=== PATIENT | female | born 1990 | race Caucasian/White ===

== ENCOUNTER → 2017-12-22 | Outpatient (CLI) | payer OTHER ==
[~2017-12-22] MED LIST: ALBU90OI INH; ALPR.5 PO; ALPR1 PO; AZIT250; AZIT250 PO; AZIT500 PO; CETI10 PO; CHOL10002 PO; CIPR500 PO; CLIN300 PO; CYCL10 PO; Cleocin HCl300 MG PO; DIAZ5 PO; DIPH50 PO; DIVA500ER; FAMO20 PO; HYDACE10B PO; HYDACE5 PO; HYOS.125 SL; K-Dur20 MEQ PO; Keflex500 MG PO; LACT10SY PO; LAMO100 PO; MICROZIDE12.5 MG; NAPR500 PO; NAPR550 PO; NITR100 PO; NORETHTP; NORT25 PO; NUVA RING; OLAN10 PO; OMEP10ER PO; OMEP20ER PO; OXYACE5T PO; PARO20; PHENA100; PHENA200 PO; POTCHL20ER PO; PRED20 PO; PROACE100 PO; PROM25 PO; PSEU120ER PO; RXANTBENOT AU; RXCYCL10 PO; RXHYDACE PO; RXNAPNA550 PO; RXOXYACE PO; RXPHEN200 PO; RXPROACE PO; RXTRAM50 PO; SULTRIDS PO; TRAACE PO; TRAM50 PO; VILAZODONE 40 MG; ZOLP10 PO
== END ==
LOC: LAB 11:17 → LAB SHORT 11:17
PROVIDERS: Registered Nurse Community Health
DX: Z12.4 Encounter for screening for malignant neoplasm of cervix (principal)
CPT/HCPCS: G0123

== ENCOUNTER 2018-02-14 22:45 | Observation (INO) | payer OTHER ==
[~2018-02-14] VITALS: Ht 157.5 cm; Wt 65.8 kg
[2018-02-14 23:16] LABS: BASOPHILS ABSOLUTE AUTO 0.03 K/mm3 (0.00-0.23); BASOPHILS PERCENT AUTO 1 % (0-2); EOSINOPHILS ABSOLUTE AUTO 0.04 K/mm3 (0.00-0.68); EOSINOPHILS PERCENT AUTO 1 % (0-6); Hematocrit 36.8 % (33.0-51.0); Hemoglobin 12.1 g/dL (11.5-16.0); IMMATURE GRAN ABSOLUTE AUTO 0.01 K/mm3 (0.00-0.10); IMMATURE GRAN PERCENT AUTO 0 % (0-1); LYMPHOCYTES PERCENT AUTO 37 % (21-46); MONOCYTES PERCENT AUTO 6 % (4-13); Mean Corpuscular HGB 26.4 pg (26.0-34.0); Mean Corpuscular HGB Conc 32.9 g/dL (31.5-36.5); Mean Corpuscular Volume 80 fL (80-100); Mean Platelet Volume 11.9 fL (9.1-12.4); NEUTROPHILS ABSOLUTE AUTO 2.58 K/mm3 (1.96-9.15); NEUTROPHILS PERCENT AUTO 55 % (41-73); Platelet Count 182 K/mm3 (150-400); RDW Coefficient Variation 12.5 % (11.7-14.2); Red Blood Cell Count 4.58 M/mm3 (3.80-5.20); White Blood Cell Count 4.66 K/mm3 (4.00-11.30)
[2018-02-14 23:22] LABS: Source, Urine Clean Catch
[2018-02-14 23:25] LABS: Bilirubin, Urine Neg (Neg); Blood, Urine Neg (Neg); Glucose Qualitative, Urine Neg (Neg); Ketones, Urine 1+ (Neg); Leukocyte Esterase, Urine Neg (Neg); Nitrite, Urine Neg (Neg); Protein, Urine 1+ (Neg); Urobilinogen, Urine 1+ (Normal)
[2018-02-14 23:32] LABS: Appearance, Urine Hazy (Clear); Color, Urine Yellow (P-Yellow)
[2018-02-14 23:33] LABS: Amorphous Light (0-Heavy); Bacteria Few /hpf; Mucus Mod (0-Heavy); Red Blood Cells, Urine Not Seen /hpf (0-2); Squamous Epithelial Cells Mod /hpf (Few); White Blood Cells, Urine Not Seen /hpf (0-5)
[2018-02-14 23:39] LABS: Alanine Aminotransfer (ALT/SGP 19 U/L (12-78); Albumin, Blood 3.4 g/dL (3.4-5.0); Albumin/Globulin Ratio 1.1 (0.8-1.8); Alk Phos 54 U/L (50-136); Anion Gap 9 mmol/L (6-16); Aspartate Aminotrans (AST/SGOT 17 U/L (12-37); Bilirubin, Total 0.5 mg/dL (0.1-1.0); Blood Urea Nitrogen 13 mg/dL (8-24); Bun/Creatinine Ratio 16.4 (12.0-20.0); CO2, Blood 24 mmol/L (21-32); Chloride, Blood 107 mmol/L (98-108); Ethanol (Alcohol), Blood, Med <3 mg/dL; Globulin, Blood 3.2 g/dL (2.2-4.0); Glomerular Filtration Rate >60 (60-); Glucose, Blood 87 mg/dL (70-99); Salicylate 2.7 mg/dL (2.8-20.0); Sodium, Blood 140 mmol/L (136-145); Total Protein, Blood 6.6 g/dL (6.4-8.2)
[2018-02-14 23:40] LABS: U Amphetamine Screen DETECTED; U Barbituate Screen Not Detected; U Benzodiazapine Screen DETECTED; U Buprenorphine Screen Not Detected; U Cannabinoids Screen DETECTED; U Cocaine Screen Not Detected; U Methadone Screen Not Detected; U Methamphetamine Screen DETECTED; U Opiates Screen Not Detected; U Oxycodone Screen Not Detected; U Phencyclidine Screen Not Detected; U Propoxyphene Screen Not Detected
[2018-02-14 23:45] LABS: Acetaminophen, Random <2.0 ug/mL (10.0-30.0)
== END 2018-02-15 16:07 | disposition home or self-care (01) ==
LOC: ER 22:45 → EOR 22:46
PROVIDERS: Emergency Medicine
DX: T43.202A Poisoning by unspecified antidepressants, intentional self-harm, initial encounter (principal); F43.21 Adjustment disorder with depressed mood; F15.10 Other stimulant abuse, uncomplicated; F41.9 Anxiety disorder, unspecified; F17.210 Nicotine dependence, cigarettes, uncomplicated; F23 Brief psychotic disorder; F43.10 Post-traumatic stress disorder, unspecified; Z88.0 Allergy status to penicillin; Z88.2 Allergy status to sulfonamides; Z88.8 Allergy status to other drugs, medicaments and biological substances; Z79.899 Other long term (current) drug therapy
CPT/HCPCS: 36415; 80053; 81001; 81025; 84443; 85025; 96372; 99285; G0378; G0480; J1200; J1630; J2060; Q3014

== ENCOUNTER → 2019-05-10 | Outpatient (CLI) | payer OTHER ==
[2019-05-12 14:07] LABS: HPV 16 Negative (Negative); HPV 18 Negative (Negative); HPV OTHER HR TYPES Negative (Negative)
== END ==
LOC: LAB 17:30 → LAB SHORT 17:30
PROVIDERS: Registered Nurse Community Health
DX: Z01.419 Encounter for gynecological examination (general) (routine) without abnormal findings (principal)
CPT/HCPCS: 87624; G0123

== ENCOUNTER 2019-08-12 08:35 | Inpatient (IN) | payer OTHER ==
[~2019-08-12] VITALS: Ht 167.6 cm; Wt 73.1 kg
[~2019-08-12 08:35] MED LIST changes: -ALPR.5 PO; -CHOL10002 PO; -NUVA RING; -OMEP10ER PO; -ZOLP10 PO
[2019-08-12 09:00] LABS: PCO2 Arterial 41.4 mmHg (35-45); PO2 Arterial 91.7 mmHg (80-100)
[2019-08-12 09:16] LABS: U Amphetamine Screen DETECTED; U Barbituate Screen Not Detected; U Benzodiazapine Screen DETECTED; U Cannabinoids Screen DETECTED; U Cocaine Screen Not Detected; U Methadone Screen Not Detected; U Methamphetamine Screen DETECTED; U Opiates Screen Not Detected
[2019-08-12 09:17] LABS: U Buprenorphine Screen Not Detected; U Oxycodone Screen Not Detected; U Phencyclidine Screen DETECTED; U Propoxyphene Screen Not Detected
[2019-08-12 09:19] LABS: BASOPHILS ABSOLUTE AUTO 0.03 K/mm3 (0.00-0.23); BASOPHILS PERCENT AUTO 1 % (0-2); EOSINOPHILS ABSOLUTE AUTO 0.02 K/mm3 (0.00-0.68); EOSINOPHILS PERCENT AUTO 0 % (0-6); Hematocrit 43.6 % (33.0-51.0); Hemoglobin 13.9 g/dL (11.5-16.0); IMMATURE GRAN ABSOLUTE AUTO 0.02 K/mm3 (0.00-0.10); IMMATURE GRAN PERCENT AUTO 0 % (0-1); LYMPHOCYTES ABSOLUTE AUTO 1.16 K/mm3 (0.84-5.20); LYMPHOCYTES PERCENT AUTO 25 % (21-46); MONOCYTES ABSOLUTE AUTO 0.26 K/mm3 (0.16-1.47); MONOCYTES PERCENT AUTO 6 % (4-13); Mean Corpuscular HGB 25.6 pg (26.0-34.0); Mean Corpuscular HGB Conc 31.9 g/dL (31.5-36.5); Mean Corpuscular Volume 80 fL (80-100); Mean Platelet Volume 11.9 fL (9.1-12.4); NEUTROPHILS ABSOLUTE AUTO 3.21 K/mm3 (1.96-9.15); NEUTROPHILS PERCENT AUTO 68 % (41-73); Platelet Count 133 K/mm3 (150-400); RDW Coefficient Variation 12.8 % (11.7-14.2); RDW Standard Deviation 36.8 fL (35.1-46.3); Red Blood Cell Count 5.44 M/mm3 (3.80-5.20)
[2019-08-12 09:46] LABS: Alanine Aminotransfer (ALT/SGP 19 U/L (12-78); Albumin, Blood 3.3 g/dL (3.4-5.0); Albumin/Globulin Ratio 0.9 (0.8-1.8); Alk Phos 62 U/L (50-136); Anion Gap 5 mmol/L (6-16); Aspartate Aminotrans (AST/SGOT 18 U/L (12-37); Bilirubin, Total 0.4 mg/dL (0.1-1.0); Blood Urea Nitrogen 9 mg/dL (8-24); Bun/Creatinine Ratio 11.3 (12.0-20.0); CO2, Blood 25 mmol/L (21-32); Calcium, Blood 8.4 mg/dL (8.5-10.1); Chloride, Blood 110 mmol/L (98-108); Ethanol (Alcohol), Blood, Med <3 mg/dL; Free Thyroxine 1.12 ng/dL (0.70-1.60); Globulin, Blood 3.7 g/dL (2.2-4.0); Glomerular Filtration Rate >60 (60-); Glucose, Blood 90 mg/dL (70-99); Potassium, Blood 3.4 mmol/L (3.5-5.5); Salicylate <1.7 mg/dL (2.8-20.0); Sodium, Blood 140 mmol/L (136-145)
[2019-08-12 09:48] LABS: Acetaminophen, Random <2.0 ug/mL (10.0-30.0)
[2019-08-12] MEDS ORDERED: VENL150ER PO (11:56)
[2019-08-12] MEDS ORDERED: FERATE240 MG PO (11:57)
[2019-08-12] MEDS ORDERED: Nuvaring Vagin1 EACH VAG (11:58)
[2019-08-12] MEDS ORDERED: ALPR.5 PO (11:59)
[2019-08-12] MEDS ORDERED: OMEPRAZOLE20 MG PO (11:59)
[2019-08-12] MEDS ORDERED: ZOLP5 PO (12:03)
[2019-08-12] MEDS ORDERED: VITAMIN D350 MCG PO (12:03)
[2019-08-12] MEDS ORDERED: CYCL10 PO (12:04)
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
[2019-08-12 15:33] LABS: Acetaminophen, Random <2.0 ug/mL (10.0-30.0); Salicylate <1.7 mg/dL (2.8-20.0)
[2019-08-12 15:36] LABS: Alanine Aminotransfer (ALT/SGP 18 U/L (12-78); Albumin/Globulin Ratio 0.9 (0.8-1.8); Alk Phos 59 U/L (50-136); Anion Gap 3 mmol/L (6-16); Aspartate Aminotrans (AST/SGOT 16 U/L (12-37); Bilirubin, Total 0.4 mg/dL (0.1-1.0); Blood Urea Nitrogen 7 mg/dL (8-24); Bun/Creatinine Ratio 9.6 (12.0-20.0); CO2, Blood 25 mmol/L (21-32); Calcium, Blood 8.2 mg/dL (8.5-10.1); Chloride, Blood 112 mmol/L (98-108); Creatinine, Blood 0.73 mg/dL (0.40-1.00); Globulin, Blood 3.4 g/dL (2.2-4.0); Glomerular Filtration Rate >60 (60-); Glucose, Blood 72 mg/dL (70-99); Sodium, Blood 140 mmol/L (136-145); Total Protein, Blood 6.4 g/dL (6.4-8.2)
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
[2019-08-12 18:03] LABS: Source, Urine Catheter
[2019-08-12 18:09] LABS: Bilirubin, Urine Neg (Neg); Blood, Urine 5+ (Neg); Glucose Qualitative, Urine Neg (Neg); Ketones, Urine 2+ (Neg); Leukocyte Esterase, Urine 3+ (Neg); Nitrite, Urine Neg (Neg); Protein, Urine Neg (Neg); Specific Gravity, Urine 1.005 (1.003-1.022); Urobilinogen, Urine NORM (Normal); pH, Urine 6.5 (5.0-8.0)
--- NOTE | 2019-08-12 18:10 | NUR ---
PT BECAME INCREASINGLY AGGITATED, UNABLE TO REDIRECT. CONTINUES TO MAKE CONFUSED STATEMENTS AND HAVE VISUAL HALLUCINATIONS. PT ATTEMPTING TO PULL RUELAS CATH. YELLING AT STAFF WHEN ATTEMPTS MAKE TO REDIRECT. PLACED PT IN SOFT RESTRAINTS TO ALL EXTREMITIES AND VEST AT 1740. WILL ATTEMPT TO PROVIDE UNINTERRUPTED REST FOR EVENING, LIMITING VISITORS AT THIS TIME. 1:1 SITTER REMAINS AT BEDSIDE. REPORT TO ONCOMING NURSE.
[2019-08-12 18:18] LABS: Appearance, Urine Hazy (Clear); Color, Urine Yellow (P-Yellow)
[2019-08-12 18:28] LABS: Bacteria Many /hpf; Squamous Epithelial Cells Mod /hpf (Few)
[2019-08-12 20:00] LABS: Alanine Aminotransfer (ALT/SGP 16 U/L (12-78); Albumin, Blood 2.9 g/dL (3.4-5.0); Alk Phos 53 U/L (50-136); Anion Gap 5 mmol/L (6-16); Aspartate Aminotrans (AST/SGOT 14 U/L (12-37); Bilirubin, Total 0.4 mg/dL (0.1-1.0); Blood Urea Nitrogen 7 mg/dL (8-24); Bun/Creatinine Ratio 9.8 (12.0-20.0); CO2, Blood 25 mmol/L (21-32); Calcium, Blood 8.1 mg/dL (8.5-10.1); Chloride, Blood 112 mmol/L (98-108); Creatinine, Blood 0.71 mg/dL (0.40-1.00); Glomerular Filtration Rate >60 (60-); Glucose, Blood 74 mg/dL (70-99); Potassium, Blood 4.1 mmol/L (3.5-5.5); Sodium, Blood 142 mmol/L (136-145); Total Protein, Blood 5.9 g/dL (6.4-8.2)
--- NOTE | 2019-08-12 20:00 | NUR ---
PT AROUSES FROM SLEEP TO PAINFUL STIMULI. WILL MUMBLE FEW NONSENSICAL WORDS THEN FALLS BACK TO SLEEP QUICKLY. PT IS IN 4 POINT RESTRAINTS AND VALE VEST SHE WAS DIFFICULT TO REDIRECT AND COMBATIVE DURING DAY SHIFT. SEE ASSESSMENT. 1:1 SITTER PRESENT.
[2019-08-13 04:03] LABS: BASOPHILS ABSOLUTE AUTO 0.03 K/mm3 (0.00-0.23); BASOPHILS PERCENT AUTO 1 % (0-2); EOSINOPHILS ABSOLUTE AUTO 0.05 K/mm3 (0.00-0.68); EOSINOPHILS PERCENT AUTO 1 % (0-6); Hematocrit 37.1 % (33.0-51.0); Hemoglobin 11.7 g/dL (11.5-16.0); IMMATURE GRAN ABSOLUTE AUTO 0.01 K/mm3 (0.00-0.10); IMMATURE GRAN PERCENT AUTO 0 % (0-1); LYMPHOCYTES ABSOLUTE AUTO 2.14 K/mm3 (0.84-5.20); LYMPHOCYTES PERCENT AUTO 49 % (21-46); MONOCYTES PERCENT AUTO 7 % (4-13); Mean Corpuscular HGB 25.9 pg (26.0-34.0); Mean Corpuscular HGB Conc 31.5 g/dL (31.5-36.5); Mean Corpuscular Volume 82 fL (80-100); Mean Platelet Volume 12.1 fL (9.1-12.4); NEUTROPHILS ABSOLUTE AUTO 1.81 K/mm3 (1.96-9.15); NEUTROPHILS PERCENT AUTO 42 % (41-73); Platelet Count 180 K/mm3 (150-400); RDW Coefficient Variation 13.1 % (11.7-14.2); RDW Standard Deviation 39.4 fL (35.1-46.3); Red Blood Cell Count 4.51 M/mm3 (3.80-5.20); White Blood Cell Count 4.34 K/mm3 (4.00-11.30)
[2019-08-13 04:21] LABS: Alanine Aminotransfer (ALT/SGP 14 U/L (12-78); Albumin, Blood 2.6 g/dL (3.4-5.0); Albumin/Globulin Ratio 0.9 (0.8-1.8); Alk Phos 51 U/L (50-136); Anion Gap 6 mmol/L (6-16); Aspartate Aminotrans (AST/SGOT 6 U/L (12-37); Bilirubin, Total 0.6 mg/dL (0.1-1.0); Blood Urea Nitrogen 8 mg/dL (8-24); Bun/Creatinine Ratio 10.9 (12.0-20.0); CO2, Blood 23 mmol/L (21-32); Calcium, Blood 7.9 mg/dL (8.5-10.1); Chloride, Blood 112 mmol/L (98-108); Creatinine, Blood 0.73 mg/dL (0.40-1.00); Glomerular Filtration Rate >60 (60-); Glucose, Blood 67 mg/dL (70-99); Sodium, Blood 141 mmol/L (136-145); Total Protein, Blood 5.6 g/dL (6.4-8.2)
--- NOTE | 2019-08-13 06:21 | NUR ---
PT HAS BEEN SLEEPING MOST OF THE NIGHT. NOW IS WAKING TO VOICE EASILY. ABLE TO FOLLOW COMMANDS. A/O TO PERSON, PLACE, ADN EVENT. WENT FROM BEING IN 4 POINT SOFT RESTRAINTS AND VALE VEST TO NOW ONLY IN VALE VEST. ABLE TO MOVE SIDE TO SIDE IN BED. NO SIGN OF DISTRESS. CONTINUES BE ON 1:1 SITTER PRECAUTIONS.
--- NOTE | 2019-08-13 07:42 | NUR ---
PATIENT GAVE THIS AUTHOR VERBAL PERMISSION TO [employer] CONSULTANT HER MOTHER AN UPDATE ON HER CONDITION.
--- NOTE | 2019-08-13 07:43 | NUR ---
ASSUMED CARE OF PATIENT AT 0700. DENIES CURRENT SI AND/OR PLAN. LYING IN BED, CALM, WANTS SOMETHING TO DRINK. VALE VEST IN PLACE. PLAN IS FOR PSYCHIATRIC CONSULT WITH DR. KELLY AT SOME POINT TODAY.
--- NOTE | 2019-08-13 07:54 | NUR ---
PATIENT'S MOTHER AT BEDSIDE FOR VISIT.
--- NOTE | 2019-08-13 08:10 | NUR ---
DR. CASTANEDA AT BEDSIDE FOR ASSESSMENT. PT'S MOTHER GAVE PROVIDER UPDATE ON PT'S HISTORY. PATIENT MAKING REQUESTS (FOOD, NICOTINE PATCH, HOME), BUT THEN THEN IS DISSATISFIED WHEN THESE ITEMS ARE ORDERED. BECAME A LITTLE AGITATED WITH DR. CASTANEDA REGARDING RESTRICTIONS WHILE ON SUICIDE PRECAUTIONS. PLAN IS FOR RUELAS OUT, REGULAR DIET, NICTOTINE PATCH ORDERED AND DR. KELLY TO SEE PT LATER TODAY.
--- NOTE | 2019-08-13 09:42 | NUR ---
EDUCATED PATIENT ABOUT PROCEDURE TO REMOVE CATHETER AND ABOUT USING TOILET TO VOID WITHIN 6 HOURS OR CATHETER MAY HAVE TO BE REPLACED; VERBALIZED UNDERSTANDING. REMOVED 9 ML STERILE WATER FROM BALLOON AND REMOVED URINARY CATHETER WITHOUT INCIDENT. TOLERATED WELL.
--- NOTE | 2019-08-13 10:01 | NUR ---
COLE FROM [facility] AT BEDSIDE. PT STATED THAT SHE HAS A SAFE PLACE TO GO AT DISCHARGE, BUT IS CURRENTLY HOMELESS. ALSO TOLD COLE THAT SHE HAD NOT PREVIOUSLY ATTEMPTED SUICIDE, BUT HER MOTHER SAYS PT HAS TRIED BEFORE. VISIT CONCLUDED AT 1012. PATIENT IN BED, FACING AWAY FROM HER MOTHER.
--- NOTE | 2019-08-13 11:15 | NUR ---
WILLIE WITH [facility] AT BEDSIDE.
--- NOTE | 2019-08-13 11:19 | NUR ---
SPOKE TO SOLITAR[facility] IN ED TO MAKE SURE THAT PT'S FACE SHEET HAD BEEN GIVEN TO DR. KELLY. SHE STATED THAT SHE PLACED THE FACE SHEET IN DR. KELLY'S MAILBOX AND THAT THE PROVIDER HAD BEEN IN ED TODAY AND TOOK FACE SHEET.
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
--- NOTE | 2019-08-13 13:30 | NUR ---
DR. KELLY AT BEDSIDE FOR ASSESSMENT. PATIENT AWAKE, MOTHER AT BEDSIDE.
--- NOTE | 2019-08-13 14:15 | NUR ---
ORDER FOR RESTRAINTS D/C'D, VALE VEST REMOVED AT 1338. PT UP TO TOILET WITH SBA, GAIT STEADY, VOIDED WITHOUT DIFFICULTY. HIGH RISK SUICIDE PRECAUTIONS D/C'D. CALL LIGHT IN REACH AND PT HAS BELONGINGS. ASKED THAT SHE CALL NURSING BEFORE GETTING UP TO VOID FOR SAFETY, VERBALIZED UNDERSTANDING.
--- NOTE | 2019-08-13 18:14 | NUR ---
PATIENT TRANFERRED THIS SHIFT. SHE IS ABLE TO AMBULATE TO RESTROOM WITH SBA. SHE REQUESTED TO GO OUT TO SMOKE BUT WAS REMINDED SHE WAS ON TELE AND HAD A NICOTINE PATCH. SHE HAS BEEN CALM AND SOMNOLENT SINCE SHE HAS BEEN HERE. SHE HAD BECOME MORE STEADY ON HER FEET SINCE HER ARRIVAL. CALL LIGHT WITHN REACH.
--- NOTE | 2019-08-14 04:13 | NUR ---
SHIFT SUMMARY ADMITTED FOR SUICIDE ATTEMPT W/OD ON FLEXERIL. SEE TOX SCREEN ON ADMIT. PLAN IS FOR DC SOON. NS IS RUNNING @ 125 ML/HR ORDERED FOR HYPOTENSION. TELEMETRY/PCU IS MONITORING NSR 89 BPM. MELATONIN ORDERED TODAY FOR INSOMNIA. PT IS CONSIDERED STABLE TO DC. REGULAR DIET. A&O X4.
--- NOTE | 2019-08-14 10:05 | NUR ---
PT HAS BEEN A/O X 4 SINCE START OF SHIFT AND REQUESTING TO GO HOME WITH HER MOM. THE HOSPITALIST ENTERED ORDERS FOR HER TO DC HOME. DC WAS REVIEWED WITH PT BY HEATER ROOM HELPER AND IV REMOVED. ALL PERSONAL BELONGINGS SENT WITH PT. PT STABLE UPON DC.
== END 2019-08-14 09:57 | disposition home or self-care (01) | DRG 917 ==
LOC: ER 08:35 → ICUW 10:52 → MEDS 08-13 14:34 → ENPENDDIS 08-14 08:00 → MEDS 08-14 09:57
PROVIDERS: Emergency Medicine; Nurse Practitioner Acute Care; ADMIT Hospitalist
DX: T48.1X2A Poisoning by skeletal muscle relaxants [neuromuscular blocking agents], intentional self-harm, initial encounter (principal); G92 Toxic encephalopathy; F33.9 Major depressive disorder, recurrent, unspecified; F43.10 Post-traumatic stress disorder, unspecified; F41.1 Generalized anxiety disorder; I95.9 Hypotension, unspecified; R40.2420 Glasgow coma scale score 9-12, unspecified time; Z88.6 Allergy status to analgesic agent; Z88.5 Allergy status to narcotic agent; Z88.0 Allergy status to penicillin; Z88.2 Allergy status to sulfonamides; Z88.8 Allergy status to other drugs, medicaments and biological substances; F17.210 Nicotine dependence, cigarettes, uncomplicated
CPT/HCPCS: 36415; 36600; 51702; 80053; 81001; 81025; 82550; 82803; 83735; 84132; 84439; 84443; 85025; 87086; 93005; 93010; 96365; 96366; 99285-25; C9113; G0480; J1650; J3480; J7030; P9612

== ENCOUNTER 2019-09-07 13:22 | Emergency (ER) | payer OTHER ==
[~2019-09-07] VITALS: Ht 157.5 cm; Wt 71.7 kg
[~2019-09-07 13:22] MED LIST changes: +ALPR.5 PO; +FERATE240 MG PO; +Nuvaring Vagin1 EACH VAG; +OMEPRAZOLE20 MG PO; +VENL150ER PO; +VITAMIN D350 MCG PO; +ZOLP5 PO
[2019-09-07] MEDS ORDERED: ZOLPIDEM TARTRA10 MG PO (14:47)
[2019-09-07] MEDS ORDERED: ALPRAZOLAM0.5 M1 PO (14:47)
== END 2019-09-07 15:16 | disposition left against medical advice (07) ==
LOC: ER 13:22
DX: R07.9 Chest pain, unspecified (principal); R51 Headache; Z53.21 Procedure and treatment not carried out due to patient leaving prior to being seen by health care provider
CPT/HCPCS: 93005; 93010; 99283-25

== ENCOUNTER 2022-02-12 22:47 | Emergency (ER) | payer OTHER ==
[~2022-02-12] VITALS: Ht 157.5 cm; Wt 73.9 kg
[~2022-02-12 22:47] MED LIST changes: +ALPRAZOLAM0.5 M1 PO; +LATUDA60 MG PO; +Xanax0.5 MG PO; +ZOLPIDEM TARTRA10 MG PO
== END 2022-02-13 01:40 | disposition home or self-care (01) ==
LOC: ER 22:47
DX: Z76.0 Encounter for issue of repeat prescription (principal); F17.210 Nicotine dependence, cigarettes, uncomplicated; Z88.0 Allergy status to penicillin; Z88.2 Allergy status to sulfonamides; Z88.5 Allergy status to narcotic agent; Z88.6 Allergy status to analgesic agent; Z91.018 Allergy to other foods; Z91.040 Latex allergy status; Z88.8 Allergy status to other drugs, medicaments and biological substances; Z79.899 Other long term (current) drug therapy
CPT/HCPCS: 99281

== ENCOUNTER → 2022-05-29 | Outpatient (CLI) | payer OTHER ==
[2022-05-31 16:10] LABS: HPV 16 Negative (Negative); HPV 18 Negative (Negative); HPV OTHER HR TYPES Positive (Negative)
[2022-06-03 12:26] LABS: CHLAMYDIA TRACHOMATIS, NAA Positive (Negative)
== END | disposition home or self-care (01) ==
LOC: LAB SHORT 15:45 → LAB 15:45
PROVIDERS: Registered Nurse Community Health
DX: Z12.4 Encounter for screening for malignant neoplasm of cervix (principal); Z72.51 High risk heterosexual behavior
CPT/HCPCS: 87491; 87591; 87624; 87625; G0123

== ENCOUNTER 2023-05-26 13:28 | Emergency (ER) | payer OTHER ==
[~2023-05-26] VITALS: Ht 157.5 cm; Wt 66.7 kg
[2023-05-26 13:55] VITALS: BP 127/83
[2023-05-26 14:27] LABS: BASOPHILS ABSOLUTE AUTO 0.02 K/mm3 (0.00-0.23); BASOPHILS PERCENT AUTO 0 % (0-2); EOSINOPHILS ABSOLUTE AUTO 0.01 K/mm3 (0.00-0.68); EOSINOPHILS PERCENT AUTO 0 % (0-6); Hematocrit 44.3 % (33.0-51.0); Hemoglobin 14.2 g/dL (11.5-16.0); IMMATURE GRAN ABSOLUTE AUTO 0.01 K/mm3 (0.00-0.10); IMMATURE GRAN PERCENT AUTO 0 % (0-1); LYMPHOCYTES ABSOLUTE AUTO 1.81 K/mm3 (0.84-5.20); LYMPHOCYTES PERCENT AUTO 36 % (21-46); MONOCYTES ABSOLUTE AUTO 0.31 K/mm3 (0.16-1.47); MONOCYTES PERCENT AUTO 6 % (4-13); Mean Corpuscular HGB Conc 32.1 g/dL (31.5-36.5); Mean Corpuscular Volume 78 fL (80-100); NEUTROPHILS ABSOLUTE AUTO 2.87 K/mm3 (1.96-9.15); NEUTROPHILS PERCENT AUTO 57 % (41-73); Platelet Count 187 K/mm3 (150-400); RDW Coefficient Variation 14.5 % (11.7-14.2); RDW Standard Deviation 39.8 fL (35.1-46.3); Red Blood Cell Count 5.69 M/mm3 (3.80-5.20); White Blood Cell Count 5.03 K/mm3 (4.00-11.30)
[2023-05-26 14:54] LABS: Albumin, Blood 4.2 g/dL (3.4-5.0); Albumin/Globulin Ratio 1.1 (0.8-1.8); Bilirubin, Total 0.8 mg/dL (0.1-1.0); Bun/Creatinine Ratio 10.3 (12.0-20.0); Creatinine, Blood 0.78 mg/dL (0.40-1.00); Globulin, Blood 3.9 g/dL (2.2-4.0); Potassium, Blood 3.6 mmol/L (3.5-5.5); Total Protein, Blood 8.1 g/dL (6.4-8.2)
[2023-05-26 16:11] LABS: Source, Urine Clean Catch
[2023-05-26 16:18] LABS: Appearance, Urine Clear (Clear); Bilirubin, Urine Neg (Neg); Blood, Urine Neg (Neg); Color, Urine Yellow (P-Yellow); Glucose Qualitative, Urine Neg (Neg); Ketones, Urine 4+ (Neg); Leukocyte Esterase, Urine 1+ (Neg); Nitrite, Urine Neg (Neg); Protein, Urine 1+ (Neg); Urobilinogen, Urine 1+ (Normal)
[2023-05-26 16:29] LABS: Mucus Mod (0-Heavy)
[2023-05-26 16:30] LABS: Bacteria Many /hpf; Hyaline Casts 0-2 /lpf (0-2); Squamous Epithelial Cells Few /hpf (Few)
[2023-05-26] MEDS ORDERED: ONDA4ODT MM (16:39)
[2023-05-26] MEDS ORDERED: CEPH500 PO (16:39)
== END 2023-05-26 18:12 | disposition home or self-care (01) ==
LOC: ER 13:28
PROVIDERS: Physician Assistant
DX: L03.311 Cellulitis of abdominal wall (principal); F17.210 Nicotine dependence, cigarettes, uncomplicated; Z79.899 Other long term (current) drug therapy; Z88.0 Allergy status to penicillin; Z88.1 Allergy status to other antibiotic agents; Z88.2 Allergy status to sulfonamides; Z88.5 Allergy status to narcotic agent; Z88.6 Allergy status to analgesic agent; Z88.8 Allergy status to other drugs, medicaments and biological substances; Z91.040 Latex allergy status; Z91.018 Allergy to other foods
CPT/HCPCS: 80053; 81001; 81025; 83690; 85025; 87077; 87086; 87186; 99284

== ENCOUNTER → 2023-06-26 | Outpatient (CLI) | payer OTHER ==
[~2023-06-26] MED LIST changes: +CEPH500 PO; +ONDA4ODT MM
[2023-07-01 12:08] LABS: HPV 16 Negative (Negative); HPV 18 Negative (Negative); HPV OTHER HR TYPES Negative (Negative)
== END | disposition home or self-care (01) ==
LOC: LAB SHORT 15:30 → LAB 15:30
PROVIDERS: Registered Nurse Community Health
DX: Z12.4 Encounter for screening for malignant neoplasm of cervix (principal)
CPT/HCPCS: 87624; G0145

== ENCOUNTER 2024-06-27 14:28 | Emergency (ER) | payer OTHER ==
[~2024-06-27] VITALS: Ht 157.5 cm; Wt 62.6 kg
[~2024-06-27 14:28] MED LIST changes: +Cleocin HCl150 MG PO
[2024-06-27 15:12] VITALS: BP 141/74
[2024-06-27] MEDS ORDERED: Dexamethasone Sod Phos 10 MG/ML 1ML VIAL PO ONE (19:25)
[2024-06-27] MEDS ORDERED: BENADRYL25 M1 PO (19:28)
[2024-06-27] MEDS ORDERED: PRED20 PO (19:28)
[2024-06-27] MEDS ORDERED: DiphenhydrAMINE HCL 25 MG Cap PO ONE (19:30)
== END 2024-06-27 19:44 | disposition home or self-care (01) ==
LOC: ER 14:28
DX: L27.0 Generalized skin eruption due to drugs and medicaments taken internally (principal); T36.4X5A Adverse effect of tetracyclines, initial encounter; F31.9 Bipolar disorder, unspecified; F17.210 Nicotine dependence, cigarettes, uncomplicated; Z88.2 Allergy status to sulfonamides; Z88.5 Allergy status to narcotic agent; Z88.0 Allergy status to penicillin; Z88.8 Allergy status to other drugs, medicaments and biological substances; Z91.040 Latex allergy status; Z91.018 Allergy to other foods; Z79.899 Other long term (current) drug therapy
CPT/HCPCS: 99282; A9270; J1100

== ENCOUNTER → 2024-09-30 | Outpatient (CLI) | payer OTHER ==
[~2024-09-30] MED LIST changes: +BENADRYL25 M1 PO
== END ==
LOC: LAB SHORT 14:16 → PLD 14:16
DX: N72 Inflammatory disease of cervix uteri (principal); Z87.42 Personal history of other diseases of the female genital tract
CPT/HCPCS: 88305; 88312